=== PATIENT | male | born 1955 | race Two or more races ===

== ENCOUNTER 2020-06-02 13:10 | Emergency (ER) | payer OTHER ==
[~2020-06-02] VITALS: Ht 170.2 cm; Wt 83.9 kg
[2020-06-02] MEDS ORDERED: SODIUM CHLORIDE 0.9% 1,000 ML IV ONE (13:45)
[2020-06-02 14:27] LABS: Eosinophils # (auto) 0 10 ^3/uL (0-0.8); Monocytes # (auto) 0.7 10 ^3/uL (0-1.3)
[2020-06-02 14:29] LABS: Lymphocytes % (auto) 11.1 % (10.0-50.0)
[2020-06-02] MEDS: BAMLANIVIMAB 700MG/200ML 200 ML IV ONE ×2 (14:30→15:20)
[2020-06-02 15:01] LABS: Basophils # (auto) 0.2 10 ^3/uL (0-0.2); Basophils % (auto) 2.6 % (0.0-2.0); Eosinophils % (auto) 0.4 % (0.0-7.0); Hematocrit 44.4 % (41.0-53.0); Hemoglobin 16.2 g/dL (13.5-17.5); Mean Corpuscular Hemoglobin 31.1 pg (28.0-32.0); Mean Corpuscular Hgb Conc. 36.4 g/dL (32.0-36.0); Mean Corpuscular Volume 85.5 fL (80.0-100.0); Monocytes % (auto) 7.6 % (0.0-12.0); Neutrophils # (auto) 7.2 10 ^3/uL (1.6-8.6); Neutrophils % (auto) 78.3 % (37.0-80.0); Platelet Count (auto) 249 10^3/uL (140-450); Red Blood Cells 5.19 10^6/uL (4.5-5.90); White Blood Cell 9.2 10^3/uL (4.4-10.8)
[2020-06-02 16:00] VITALS: BP 137/77
[2020-06-02 17:12] LABS: Albumin 3.6 g/dL (3.4-5.0); Calcium 9.1 mg/dL (8.5-10.1); Potassium 3.8 mmol/L (3.5-5.1)
[2020-06-02 17:32] LABS: BUN/Creatinine Ratio 21.3; Total Protein 7.9 g/dL (6.4-8.2)
[2020-06-02 18:14] LABS: CRP High Sensitivity 4.72 mg/dL (< 0.3)
== END 2020-06-02 17:42 | disposition home or self-care (01) ==
LOC: ER 13:10
DX: U07.1 COVID-19 (principal); J40 Bronchitis, not specified as acute or chronic; E11.9 Type 2 diabetes mellitus without complications
CPT/HCPCS: 36415; 71045; 80053; 82728; 83615; 83880; 84484; 85025; 86141; 87426; 96360; 96361; 99284; J7030; M0239; Q0239; 96365